=== PATIENT | female | born 2000 | race Caucasian/White ===

== ENCOUNTER 2024-03-28 12:54 | Emergency (ER) | payer OTHER, SELFPAY ==
[2024-03-28 13:14] VITALS: BP 124/89; PULSE 67; RESP 18; TEMP 36.4; O2SAT 100; BMI 24.5
--- NOTE | 2024-03-28 13:15 | ED_ITS ---
HPI - Skin/Abscess/Foreign Bdy General Chief complaint: Wound/Laceration Stated complaint: cut finger @ work Time Seen by Provider: 03/28/24 13:33 Source: patient Mode of arrival: ambulatory Limitations: no limitations History of Present Illness HPI narrative: Patient is a 23-year-old female who presents to the emergency department for evaluation of a laceration to L thumb from a knife while at work. Unaware of d ate of last tetanus vaccination. Related Data Allergies Allergy/AdvReac Type Severity Reaction Status Date / Time No Known Allergies Allergy Verified 03/28/24 13:15 Review of Systems Review of Systems: Yes all other systems are reviewed and are negative [facility], [facility] Past Medical History Attestation statement: The following information was validated with the patient. Source: old records reviewed Social History Social History Advance Directives: No Advance Directives Information Provided: No Do you have a plan to hurt others: No Plan Physical Exam Vital Signs: Vital Signs: Last Vital Signs Temp 97.5 F 03/28/24 13:14 Pulse 67 03/28/24 13:14 Resp 18 03/28/24 13:14 BP 124/89 03/28/24 13:14 Pulse Ox 100 03/28/24 13:14 O2 Del Method Room Air 03/28/24 13:14 BMI result Body Mass Index 24.5 Appearance: Alert.?Oriented to person, place and time. No acute distress.?Normal affect. Neck: Normal inspection.? Neck supple.?? CVS: Heart sounds normal. Normal heart rate and rhythm.? Pulses normal.?? Respiratory: No respiratory distress.? Lung sounds clear to auscultation bilaterally?? Skin: Skin warm and dry.? Normal skin color.? Superficial laceration to the ulnar aspect of the left distal, involvement along the side of the nail bed. No subungual hematoma. No active bleeding. Extremities: No lower extremity edema.? Full range of motion to digits Neuro: Moves all extremities spontaneously. Sensation intact bilaterally. Ambulates with normal steady gait. Course Course Course Narrative: This is an RME performed by Shaneka Arnett CNP: Additional HPI, ROS, PE not included below will be deferred to primary provider. Patient is a 23-year-old female who presents to the emergency department for evaluation of a laceration to L thumb from a knife while at work. Unaware of date of last tetanus vaccination. Medications Administered Discontinued Medications Generic Name Dose Route Start Last Admin Trade Name Freq PRN Reason Stop Dose Admin Diphtheria/Tetanus/Acell Pertussis 0.5 ml 03/28/24 13:22 03/28/24 13:30 Diphth,Pertus(Acell),Tet Adult 0.5 Ml Syringe IM 03/28/24 13:23 0.5 ml .ONCE ONE Administration Medical Decision Making Medical Decision Making MDM Narrative: Patient is a 23-year-old female who presents to the emergency department for evaluation of an accidental laceration to the left thumb as per HPI. Extremity is neurovascularly intact distally. No subungual hematoma. Laceration is not amenable to repair with suture as it is superficial. Cleansed extensively with normal saline and Betadine. Clean dry dressing was applied. Tetanus vaccine was updated. Stable for discharge home. Discussed return precautions including signs of infection. Differential Diagnosis Differential Diagnoses: The differential diagnosis associated with the presentation includes (See narrative above) Independent Historian Clinical information obtained from an independent historian. History obtained from or confirmed by: Friend (Present who confirms history) Prescription Management I considered prescription management with: Pain Medication (Acetaminophen/ibuprofen as needed) Discharge Plan Discharge Clinical Impression: Laceration of finger of left hand Qualifiers: Encounter type: initial encounter Finger: thumb Foreign body presence: without foreign body Patient Disposition: Home, Self-Care Instructions: Finger Laceration (ED) Referrals: Marilyn Medina NP [Primary Care Provider] - Print Language: East Timorese
[2024-03-28] MEDS: Diphth,Pertus(ACell),Tet Adult 0.5 ML SYRINGE IM (13:30)
[2024-03-28 13:38] VITALS: BP 124/89; PULSE 67; RESP 18; TEMP 36.4; O2SAT 100
== END 2024-03-28 13:38 | disposition home or self-care (01) ==
PROVIDERS: Emergency Provider Emergency Medicine; PCP Registered Nurse
DX: S61.012A Laceration without foreign body of left thumb without damage to nail, initial encounter (principal); W26.0XXA Contact with knife, initial encounter; Y93.9 Activity, unspecified; Y92.9 Unspecified place or not applicable; Y99.0 Civilian activity done for income or pay; Z23 Encounter for immunization
CPT/HCPCS: 90471; 90715; 99282; 99284

== ENCOUNTER 2025-06-21 11:35 | Inpatient (IN) | payer OTHER, SELFPAY ==
--- OUTSIDE RECORDS SUMMARY | 2023-05-22 17:02 | XMS_ITS | Encounter Summary ---
Author Organization [facility] Address [address] [place] [address] Phone Care Team Providers Care Banquet Set Up Person Name Role Phone Marilyn Medina CELL TECHNICIAN Primary Care Provider [phone] Encounter Details Date Type Department Care Team (Late st Contact Info) Description 05/22/2023 5:02 PM EDT Hospital Encounter [facility] [address] [place] [id number] Gela Yoder, CELL TECHNICIAN [address] [place] [address] [email or web address] Social History Tobacco Use Types Packs/Day Years Used Date Smoking Tobacco: Never Smokeless Tobacco: Never Alcohol Use Standard Drinks/Week Comments Yes 0 (1 standard drink = 0.6 oz pur e alcohol) Education Answer Date Recorded Are you interested in more education? Not on whit e 05/23/2023 Are you concerned about learning? Not on file 05/23/2023 No 05/23/2023 No 05/23/2023 Digital Access Answer Date Recorded No 05/23/2023 No 05/23/2023 Reliable internet access at home? Not on file 05/23/2023 Device with a working camera? Not on file Comments Unknown Sex and Gender Information Value Date Recorded Sex Assigned at Not on file Legal Sex Female 4:34 PM EDT Gender Identity Not on file Sexual Orientation Not on file documented as of this encounter Plan of Treatment Not on file documented as of this encounter Procedures Procedure Name Priority Date/Time Associated Diagnosis Comments XR FOOT 3 OR MORE VIEWS (RIGHT) Urgent/patient waiting 05/22/2023 5:10 PM EDT Right foot pain documented in this encounter Results * XR FOOT 3 OR MORE VIEWS (RIGHT) (05/22/2023 5:10 PM EDT) Anatomical Region Laterality Modality Foot Right Computed Radiogr aphy 05/22/2023 5:12 PM EDT Impressions 05/22/2023 5:21 PM EDT No fracture or dislocation. ATTESTATION: Ronda Motley as teaching physician, have reviewed the images for this case and if necessary edited the report originally created by Alma Paul. Narrative 05/22/2023 5:21 PM EDT XR FOOT 3 OR MORE VIEWS (RIGHT) COMPARISON: None FINDINGS: No fracture. Normal alignment. Normal joint spaces. No soft tissue swelling. Procedure Note Ronda Hernandez MD - 05/22/2023 XR FOOT 3 OR MORE VIEWS (RIGHT) COMPARISON: None FINDINGS: No fracture. Normal alignment. Normal joint spaces. No soft tissueswelling. IMPRESSION: No fracture or dislocation. ATTESTATION: Ronda Motley as teaching physician, have reviewed the imagesfor this case and if necessary edited the report originally created byAlma Paul. us Gela B Whitehill CELL TECHNICIAN IMG XR LOWER EXTREMITY Viviana l Result documented in this encounter Visit Diagnoses Not on filedocumented in this encounter Care Teams Banquet Set Up Person Relationship Specialty Start Date End Date Marilyn Medina NP PCP - General Nurse Practitioner 05/22/23 documented as of this encounter Additional Source Comments The information contained in this document represents components of the legal health record. It is not the complete legal health record.[facility]
[2025-06-21 11:43] VITALS: BP 125/75; PULSE 94; RESP 18; TEMP 36.2; O2SAT 98; BMI 23.4
--- NOTE | 2025-06-21 11:46 | ECG_ITS ---
Test Reason : overdose Blood Pressure : */* mmHG Vent. Rate : 95 BPM Atrial Rate : 95 BPM P-R Int : 144 ms QRS Dur : 86 ms QT Int : 346 ms P-R-T Axes : 77 109 0 degrees QTcB Int : 434 ms Normal sinus rhythm Rightward axis T wave abnormality, consider inferior ischemia Abnormal ECG No previous ECGs available Referred By: Nadir Larose Electronically Signed By: MICHELLE KNAPP MD
--- NOTE | 2025-06-21 11:50 | ED.GENADULT ---
HPI - General Adult General Chief complaint: Overdose Stated complaint: Took too much medication, vomiting Time Seen by Provider: 06/21/25 12:34 History of Present Illness ED Provider: Mary LUNA narrative: The patient is a generally healthy 25-year-old female. She is normally on oral contraceptive control but no other medications. Yesterday was her birthday. She was drinking alcohol last night. She says that she felt sad when she was drinking and took an overdose of at least 10 tablets of her boyfriend's losartan. These were 50 mg tablets. She says that at around 09:00 she developed vomiting with some mild epigastric discomfort. No fever, sweats, chills. The patient says that the decision to take the pills last night was very impulsive while she had had alcohol. Of note yesterday was her birthday. She really would not go into why she took the pills. Related Data Home Medications ?Medication ?Instructions ?Recorded ?Confirmed norethindrone 1 mg-ethinyl 1 tab PO DAILY 06/21/25 06/21/25 estradiol 20 mcg (24)-iron 75 mg (4) tablet (Kandace 24 Fe) Allergies Allergy/AdvReac Type Severity Reaction Status Date / Time No Known Allergies Allergy Verified 06/21/25 11:52 Review of Systems Review of Systems: Yes all other systems are reviewed and are negative [facility] Social History Social History Household Members: Other Household Members Other:: bf Housing: Condominium Do you presently have visiting nurse or other home services: No Alcohol intake: current Alcohol type: wine Patient Tobacco Use Status: Never used Tobacco Smoked in Last 30 Days: No Patient Interested in Nicotine Replacement: No Patient Given Instructions on How to Stop Smoking: No Second Hand Smoke Exposure: No Use of substances other than those prescribed or required for medical reasons: No Currently Displaying Signs/Symptoms of Drug Intoxication Withdrawal: No Have you been hit, kicked, punched, or otherwise hurt by someone within the past year? If so, by whom?: No Do you feel safe in your current relationship?: Yes Is there a partner from a previous relationship who is making you feel unsafe now?: No Are you made to feel afraid or neglected: No Spiritual Healthcare Practices: None Quaker Healthcare Practices: None Cultural Healthcare Practices: None Advance Directives: No Advance Directives Information Provided: Yes Do you have thoughts of harming others: None Do you have a plan to hurt others: No Plan Recently lost weight without trying: No How much weight loss: Not applicable Eating poorly because of decreased appetite: No Nutrition screen score: 0 Nutrition Risks: No Nutritional Risk Patient : No : No Poor oral hygiene: No Physical Exam ED Vital Signs: Vital Signs - 24 hr 06/22/25 14:41 Temperature 98.1 F Pulse Rate 86 Respiratory Rate 14 Blood Pressure 136/74 Pulse Oximetry 99 Oxygen Delivery Method Room Air BMI result Body Mass Index 23.4 Const General: cooperative, healthy appearing, comfortable and no acute distress Orientation/consciousness: patient oriented x3 HENMT Other: The face is symmetrical. ?Mucous membranes moist. Eyes Other: Pupils are round equal, conjunctivae are clear, extraocular movements intact Neck Neck: Yes normal visual inspection and Yes full ROM Resp Effort & Inspection: normal respiratory effort Auscultation: clear to auscultation bilaterally Cardio Rate: regular rate Rhythm: regular rhythm Heart sounds: S1 normal heart sound present and S2 normal heart sound present GI Other: Abdomen is soft and nontender Skin Other: The skin is dry and unremarkable Neuro General: patient oriented x3, tone normal, moves all extremities, no focal motor deficits and CN's II-XI intact bilaterally Extrem Other: There is no calf swelling or tenderness. No asymmetry. No peripheral edema. Psych Other: The patient is a well-groomed 25-year-old. She is pleasant and cooperative. There seems to be a discrepancy between her demeanor and the fact that she took a significant overdose last night. Course Course Course Narrative: RME: 25 yold female presents to the ED for intentional overdose of losartan 50 mg 10 pills. that occured 12 hours ago. patient states she was drinking for her birhtday and got depressed and tool the pills. Patient states previous SI attempt with overdose in the past. labs, EkG, and care team consult placed. Reevaluation(s) Reevaluation #1: Time: 06:52 Date: 06/22/25 Provider: Spring Storm, DO Patient in physician observation for psychiatric evaluation.? No acute events reported overnight. No current complaints. VS stable.? Patient needs re-eval for CARE team this AM for dispo. Will continue to monitor. Reevaluation #2: 06/22/25 1700 ANTHONY physician observation ended admitted inpatient Medications Administered Discontinued Medications Generic Name Dose Route Start Last Admin Trade Name Terri PRN Reason Stop Dose Admin Famotidine 20 mg 06/21/25 12:57 06/21/25 13:54 Famotidine/Pf 20 Mg/2 Ml Vial IVPUSH 06/21/25 12:58 20 mg ONCE ONE Administration Sodium Chloride 1,000 mls @ 999 mls/hr 06/21/25 13:00 06/21/25 15:04 Ns IV 06/21/25 14:00 Infused .Q1H1M KATHIE Infusion Influenza Virus Vaccine 0.5 ml 06/22/25 18:09 06/22/25 20:04 Flu Vacc [id number](6mo Up)/Pf 0.5 Ml Syringe IM 06/22/25 18:10 0.5 ml .ONCE ONE Administration Ondansetron HCl 4 mg 06/21/25 12:57 06/21/25 13:54 Ondansetron Hcl 4 Mg/2 Ml Vial IVPUSH 06/21/25 12:58 4 mg ONCE ONE Administration Medical Decision Making Medical Decision Making [facility] Narrative: The patient comes to the emergency room after apparently taking an overdose last night while intoxicated. She presents a proximally 12 hours after the overdose. She reports that she took possibly as many as 10 or more losartan tablets, 50 mg each. She looks entirely well. She seems to be very corey about the event and does not seem to exhibit any concern about having taken the overdose. I spoke to the poison Center. Apparently losartan as rarely a concerning overdose. They recommended an additional few hours of medical observation at which point the patient could be medically cleared and seen by crisis. After 3 additional hours of observation during which time the patient looks entirely well she was moved into the psychiatric area and seen by crisis. The care team assembly line machine operator felt that there was not sufficient information available to safely discharge the patient. Given the potential seriousness of last night's overdose the patient will be kept in the emergency department overnight for a possible inpatient hospitalization. I have signed a section 12. The patient will be placed in physician observation as of 1700 on 06/21/2025. Lab Data 06/23/25 08:34 06/21/25 12:03 Labs: Lab Results 06/21/25 Range/Units 12:03 WBC 15.5 H (4.8-10.8) X10*3/uL RBC 4.07 L (4.20-5.50) X10*6/uL Hgb 13.1 (12.0-16.0) g/dl Hct 35.9 L (37.0-47.0) % MCV 88.2 (80.0-98.0) fL MCH 32.2 (27.0-33.0) pg MCHC 36.5 H (31.0-35.0) g/dl RDW 12.5 (11.0-16.0) % Plt Count 375 (160-400) X10*3/uL MPV 8.9 L (9.4-12.3) fL Immature Gran % (Auto) 0.4 (0.0-0.4) % Neut % (Auto) 80.1 H (45-73) % Lymph % (Auto) 11.8 L (20-40) % Holt % (Auto) 6.4 (2-11) % Eos % (Auto) 0.8 (0-4) % Baso % (Auto) 0.5 (0-2) % Lymph # (Auto) 1.8 (1.2-4.9) X10*3/uL Holt # (Auto) 1.0 (0.1-1.2) X10*3/uL Eos # (Auto) 0.1 (0.0-0.4) X10*3/uL Baso # (Auto) 0.1 (0.0-0.2) X10*3/uL Abs Immat Gran (auto) 0.06 H (0.00-0.03) X10*3/uL Absolute Neuts (auto) 12.4 H (2.0-8.3) x10*3/uL Absolute Nucleated RBC 0.000 (0.0-0.012) X10*3/uL Nucleated RBC % (auto) 0.0 (0.0-0.2) /100WBC PT 11.4 (10.9-12.4) SEC INR 1.0 (0.9-1.1) APTT 23.3 L (26.7-34.1) SEC Sodium 141 (135-145) mmol/L Potassium 4.0 (3.3-5.1) mmol/L Chloride 108 (96-108) mmol/L Carbon Dioxide 21 L (22-29) mmol/L Anion Gap 16 (12-20) BUN 12 (9-16) mg/dL Creatinine 1.09 (0.5-1.4) mg/dL Estim Creat Clear Calc 62.9 Estimated GFR > 60 Random Glucose 105 (60-115) mg/dL Calcium 8.9 (8.4-10.2) mg/dL Magnesium 2.1 (1.6-2.6) mg/dL Total Bilirubin 0.5 (0.0-1.0) mg/dL AST 22 (5-31) U/L ALT 27 (0-31) U/L Alkaline Phosphatase 39 (39-117) U/L Total Protein 7.5 (6.5-8.0) g/dL Albumin 5.0 (3.5-5.0) g/dL Beta HCG, Quant < 2 mIU/mL Urine Color Yellow Urine Appearance Clear Urine pH >= 9.0 (5.0-9.0) Ur Specific [place] <= 1.005 (1.005-1.025) Urine Protein Negative (Neg-Trace) mg/dL Urine Glucose (UA) Negative (Negative) mg/dL Urine Ketones Negative (Negative) mg/dL Urine Blood Negative (Negative) Urine Nitrite Negative (Negative) Ur Leukocyte Esterase Trace H (Negative) Urine RBC 0-2 (0-2) /HPF Urine WBC 11-20 H (0-5) /HPF Ur Squamous Epith Cells 11-20 (0-2) /HPF Urine Bacteria None Seen (None Seen) Hyaline Casts 3-5 (0-2) /LPF Salicylates < 5.0 L (15-30) mg/dL Urine Opiates Screen Not Detected (Not Detect) Ur Buprenorphine Scrn Not Detected (Not Detect) ng/mL Ur Oxycodone Screen Not Detected (Not Detect) ng/mL Urine Methadone Screen Not Detected (Not Detect) ng/mL Urine Fentanyl Screen Not Detected (Not Detect) Acetaminophen < 3 (<30) mcg/mL Ur Barbiturates Screen Not Detected (Not Detect) Ur Phencyclidine Scrn Not Detected (Not Detect) Ur Amphetamines Screen Not Detected (Not Detect) U Benzodiazepines Scrn Not Detected (Not Detect) Urine Cocaine Screen Not Detected (Not Detect) U Marijuana (THC) Screen Not Detected (Not Detect) Ethyl Alcohol < 10 mg/dL Discharge Plan Discharge Clinical Impression: Drug overdose Patient Disposition: Admitted As Inpatient Interventions: Admission Worksheet (ED) Last Done: 06/22/25 17:00 Discharge Date/Time: 06/22/25 17:12
--- OUTSIDE RECORDS SUMMARY | 2025-06-21 12:05 | XMS_ITS | Clinical Summary ---
Author Organization [facility] Address [address] [place] [id number] Phone Care Team Providers Care Coil Inspector Name Role Phone Medina, Marilyn THAYER Primary Care Provider [phone] Allergies No known active allergies Medications , 1-20 mg-mcg per tablet Take 1 tablet by mouth every morning. 04/05/2023 Active Active Problems No known active problems Social History Tobacco Use Types Packs/Day Years Used Date Smoking Tobacco: Never Smokeless Tobacco: Never Tobacco Cessation:Counseling Given: Not Answered Alcohol Use Standard Drinks/Week Comments Yes 0 [...] on file Sexual Orientation Not on file Last Filed Vital Signs Vital Sign Reading Time Taken Comments Blood Pressure 123/80 05/22/2023 4:53 PM EDT Pulse 63 05/22/2023 4:53 PM EDT Temperature 36.3 C (97.3 F) 05/22/2023 4:53 PM EDT Respiratory Rate 18 05/22/2023 4:53 PM EDT Oxygen Saturation 99% 05/22/2023 4:53 PM EDT Inhaled Oxygen Concentration - - Weight - - Height - - Body Mass Index - - Plan of Treatment Health Maintenance Due Date Last Done Comments Adult Td,Tdap Booster 2001 DEPRESSION SCREENING 2013 SMOKING Hx and SMOKELESS TOBACCO SCREENING 2014 HPV VACCINES (1 - 3-dose series) 2016 CHLAMYDIA SCREENING 2017 HEPATITIS C SCREENING 2019 HIV ONE-TIME SCREENING (18-65 YEARS) 2019 PAP SMEAR 2022 INFLUENZA VACCINE (#1) 2025 2, 05/11/2021, 06/05/2020, Additional history exists COVID-19 VACCINE (2024- season) 2025 08/31/2021, 01/30/2021, 01/09/2021 HEPATITIS A VACCINES Aged Out 10/27/2020 No long er eligible based on patient's age to complete this topic HIB VACCINES Aged Out No longer eligi ble based on patient's age to complete this topic MENINGOCOCCAL VACCINES (ACWY) Aged Out No longer eligible based on patient's age to complete this topic MENINGOCOCCAL VACCINES (B) Aged Out N o longer eligible based on patient's age to complete this topic PNEUMOCOCCAL VACCINES (0-49 years) Aged Out No longer eligible based on patient's age to complete this topic Medical Devices Not on file Insurance CIGNA PPO CIGNA PPO CIGNA PPO CIGNA PPO CIGNA PPO CIGNA PPO Member Subscriber Plan / Payer (Ef fective 2008-Present) Name:Arina Liu Relation to Subscriber:Self Name:Arina Liu Payer ID:[id number] (NAIC) Type:PPO Address: [place] [id number] Care Teams Coil Inspector Relationship Specialty Start Date End Date Marilyn Medina NP PCP - General Nurse Practitioner 05/22/23 Additional Source Comments The information contained in this document represents components of the legal health record. It is not the complete legal health record.[facility]
[2025-06-21 12:11] LABS: MANUAL DIFF FLAG NO
[2025-06-21 12:12] LABS: Hematocrit 35.9 % (37.0-47.0); Hemoglobin 13.1 g/dl (12.0-16.0); Imm Gran Abs Auto 0.06 X10*3/uL (0.00-0.03); Imm Gran Pct Auto 0.4 % (0.0-0.4); Lymphocytes Absolute Auto 1.8 X10*3/uL (1.2-4.9); Mean Corpuscular HGB Conc 36.5 g/dl (31.0-35.0); Mean Corpuscular Hemoglobin 32.2 pg (27.0-33.0); Mean Corpuscular Volume 88.2 fL (80.0-98.0); NRBC Abs Auto 0.000 X10*3/uL (0.0-0.012); NRBC Pct Auto 0.0 /100WBC (0.0-0.2); Platelet Count 375 X10*3/uL (160-400); Red Blood Count 4.07 X10*6/uL (4.20-5.50); White Blood Count 15.5 X10*3/uL (4.8-10.8)
[2025-06-21 12:13] LABS: Appearance Urine Clear; Glucose Urine UA Negative (Negative); PH >= 9.0 (5.0-9.0); Specific Gravity - Urine <= 1.005 (1.005-1.025); UMIC TRIGGER UACC YES
[2025-06-21 12:14] VITALS: BP 103/70; PULSE 89; RESP 18; O2SAT 97
[2025-06-21 12:18] LABS: INTERNATIONAL NORM RATIO 1.0 (0.9-1.1); Prothrombin Time 11.4 SEC (10.9-12.4); UACC Culture Trigger YES
--- NOTE | 2025-06-21 12:19 | PC.NURSE ---
Addendum entered by John Naik RN 06/21/25 12:23: Pt's boyfriend is at bedside. He sts she got the medication from in the cabinet in the house. Original Note: 25 F presents to ED after overdose of losartan 50mg x 10+ tablets last night when drinking. Last drink of alcohol 10pm. A+Ox4, calm, cooperative. C/o 09/26 abdominal pain with n/v since this morning, no other complaints. Pt denies SI/HI at this time, sts she gave up drinking for a while because this happened last time. RR even and unlabored. denies CP or SOB.
[2025-06-21 12:21] LABS: Partial Thromboplastin Time 23.3 SEC (26.7-34.1)
[2025-06-21 12:22] LABS: Cannabinoid Screen Urine Not Detected (Not Detect)
--- NOTE | 2025-06-21 12:25 | PC.NURSE ---
Sitter at bedside, pt was changed over by security and belongings secured.
[2025-06-21 12:36] LABS: Acetaminophen LAB < 3 mcg/mL (<30); Alanine Aminotransferase 27 U/L (0-31); Albumin Level 5.0 g/dL (3.5-5.0); Alkaline Phosphatase 39 U/L (39-117); Anion Gap 16 (12-20); Aspartate Amino Transferase 22 U/L (5-31); Blood Urea Nitrogen 12 mg/dL (9-16); Calcium 8.9 mg/dL (8.4-10.2); Carbon Dioxide 21 mmol/L (22-29); Chloride 108 mmol/L (96-108); Creatinine Clr Calc Pharmacy 62.9; Estimated Glomerular Filt Rate > 60; Magnesium 2.1 mg/dL (1.6-2.6); Potassium 4.0 mmol/L (3.3-5.1); Salicylate < 5.0 mg/dL (15-30); Sodium 141 mmol/L (135-145); Total Protein 7.5 g/dL (6.5-8.0)
[2025-06-21 14:05] VITALS: BP 101/63; PULSE 76; RESP 14; O2SAT 98
--- NOTE | 2025-06-21 15:15 | PC.NURSE ---
Report called to pod nurse, IV removed, pt walked over to pod 6.
--- NOTE | 2025-06-21 15:32 | PC.NURSE ---
Assumed care of patient, report received from PATRICIA Gibson. Pt calm and cooperative, denying SI at this time. Pending CARE team doretha
[2025-06-21 20:44] VITALS: BP 131/79; PULSE 83; RESP 20; TEMP 36.6; O2SAT 99
[2025-06-22 06:21] VITALS: BP 123/69; PULSE 84; RESP 16; TEMP 36.4; O2SAT 98
--- NOTE | 2025-06-22 07:54 | PC.NURSE ---
Assumed care, report received. Pt wakes early, she is calm and cooperative. she eats breakfast and showers. she spends her morning reading in her room. she denies SI at this time.
--- NOTE | 2025-06-22 13:22 | PHA.MEDREC ---
Addendum entered by Lee Dee PharmD 06/22/25 13:31: reviewed Original Note: Pharmacy Consult ? Medication Reconciliation Reviewed med rec done by nursing. Spoke with pt and she confirmed she only takes her control and nothing else at this time.
[2025-06-22 14:41] VITALS: BP 136/74; PULSE 86; RESP 14; TEMP 36.7; O2SAT 99
[2025-06-22 17:00] VITALS: BP 150/76; PULSE 73; RESP 16; TEMP 2.8; TEMP 37.1; O2SAT 97
[2025-06-22 18:37] VITALS: BMI 23.4
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
[2025-06-22] MEDS: Flu Vacc TS2025-26(6mo up)/PF 0.5 ML SYRINGE IM (20:04)
[2025-06-22 20:09] VITALS: BP 121/68; PULSE 71; RESP 16; TEMP 36.1; O2SAT 96
--- NOTE | 2025-06-22 20:23 | P.HPPS_ITS ---
HPI Date of Service: 06/22/25 Chief Complaint: Losartan overdoes,alcohol abuse Sources of Information: patient interviewed, chart reviewed and crisis/core team assessment reviewed HPI Subjective Notes: [place] Warning and Conditional Voluntary Healthcare Proxy: No Guardianship: No Medical Problems Affecting Mental Status: No Narrative: Per Care team note: patient is a 25 y.o single, While, [place]serr[place] speaking female with no prior mental or medical conditions who was brought to [facility] ED by her boyfriend due to concern of intentional OD on more than 10 50mg Losastin tablets. Patient required poison control monitoring but Losastain is not typically fatal. Patient has no hx of mental health treatment. Patient inappropriately laughs throughout the assessment while providing guarded/vague about the reported intentional OD. Patient reports that she had 5-6 alcohol beverages over the course of the day including wine and martinis. patient was unable to clearly tell her thought process behind taking the pills 'I was not really thinking of anything. I was impulsive and took them . On M5: patient reports reasons for brought to the hospital are the other day I took some blood pressure pills . Patient clarifies that the pills are not her or her boyfriend but from a friend who left in the house. Report that Sunday was her birthday, she had some drinks with friends. Her Ex-boyfriend sent message to say happy birthday. Her current boyfriend was not happy about it. He got upset and patient then got upset because of him being upset. Patient then took OD. Her goal or thoughts at that moment was not intentionally to kill myself rather than an impulsive behaviors under influence of alcohol. She reports that she has been stopped drinking since February as she knows alcohol is not good for her. Report she gets emotion, not thinking clearly and forget things easily when she drinks. She knows alcohol can bring her trouble and has been working hard to not drink but it was her birthday. Report having 2 glasses of wine and martinis on that day. No current W/D symptoms. Denies other substance use. Legal issues. Denies. Trauma hx: Denies. Treatment hx: no prior mental health treatment but started working with OP therapist since April from weekly to biweekly. She is currently working learning and development administrator and just bought a condo with her boyfriend in November. Report she is happy with her life and her job. Has good support family system. Denies mental health or substance use in family. Denies being dx with any mental health herself. Denies SI/SIB/HI/AVH. Hx of one prior suicide attempts via OD about 10 years ago when she was a teenager which she was not admitted to psychiatric hospital. Denies medical conditions except for chronic constipation. Patient is A+O x4, friendly, pleasant, and cooperative. Mood is fine and better now as I am on the floor . Appear to anxious. Wearing hospital attire with kempt hair, fair ADLS. Denies depression but report sometime feeling anxious. Thought process and thought content WNL. NO not appear to be psychotic. Speech is normal rate and volume, bright affect. Poor judgment but fair insight. Patient does not present with depression but appear to be anxious. Alcohol could be a problem, become impulsive and impaired under influence of alcohol. Possible dx for this presentation would be alcohol induce mood disorder and chronic constipation. Past Psychiatric History: Denies psychiatric treatment hx. [facility]. No psychiatrist but has active OP therapist started in April- weekly No medication trials hx. Not interested in medication at this time. Medical Evaluation Reviewed: Yes Unremarkable. PMFSH Narrative: Denies medical or surgical hx but report chronic constipation. Family History: Denies family of mental health hx. Report aunt is alcoholic who is in and out of treatment programs Social History: Patient is a single but in relationship, no children. College level for education. 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 Substance History: Some alcohol issues. Recently stopped drinking since March. Patient reports patient does not do well when having alcohol. Sometimes drink once a week. Denies other substance use. Trauma History: Denies Diagnostics Vital Signs (24Hr): Vital Signs - 24 hr 06/21/25 20:44 06/22/25 06:21 06/22/25 14:41 Temperature 98 F 97.6 F 98.1 F Pulse Rate 83 84 86 Respiratory Rate 20 16 14 Blood Pressure 131/79 123/69 136/74 Pulse Oximetry 99 98 99 Oxygen Delivery Method Room Air Room Air Room Air 06/22/25 17:00 06/22/25 20:09 Temperature 37.1 F L 97 F Pulse Rate 73 71 Respiratory Rate 16 16 Blood Pressure 150/76 H 121/68 Pulse Oximetry 97 96 Oxygen Delivery Method Room Air Room Air BMI result Body Mass Index 23.4 Labs 06/21/25 12:03 06/21/25 12:03 Labs: Laboratory Results - last 48 hr 06/21/25 12:03 WBC 15.5 H RBC 4.07 L Hgb 13.1 Hct 35.9 L MCV 88.2 MCH 32.2 MCHC 36.5 H RDW 12.5 Plt Count 375 MPV 8.9 L Immature Gran % (Auto) 0.4 Neut % (Auto) 80.1 H Lymph % (Auto) 11.8 L [place] % (Auto) 6.4 Eos % (Auto) 0.8 Baso % (Auto) 0.5 Lymph # (Auto) 1.8 [place] # (Auto) 1.0 Eos # (Auto) 0.1 Baso # (Auto) 0.1 Abs Immat Gran (auto) 0.06 H Absolute Neuts (auto) 12.4 H Absolute Nucleated RBC 0.000 Nucleated RBC % (auto) 0.0 PT 11.4 INR 1.0 APTT 23.3 L Sodium 141 Potassium 4.0 Chloride 108 Carbon Dioxide 21 L Anion Gap 16 BUN 12 Creatinine 1.09 Estim Creat Clear Calc 62.9 Estimated GFR > 60 Random Glucose 105 Calcium 8.9 Magnesium 2.1 Total Bilirubin 0.5 AST 22 ALT 27 Alkaline Phosphatase 39 Total Protein 7.5 Albumin 5.0 Beta HCG, Quant < 2 Urine Color Yellow Urine Appearance Clear Urine pH >= 9.0 Ur Specific [place] <= 1.005 Urine Protein Negative Urine Glucose (UA) Negative Urine Ketones Negative Urine Blood Negative Urine Nitrite Negative Ur Leukocyte Esterase Trace H Urine RBC 0-2 Urine WBC 11-20 H Ur Squamous Epith Cells 11-20 Urine Bacteria None Seen Hyaline Casts 3-5 Salicylates < 5.0 L Urine Opiates Screen Not Detected Ur Buprenorphine Scrn Not Detected Ur Oxycodone Screen Not Detected Urine Methadone Screen Not Detected Urine Fentanyl Screen Not Detected Acetaminophen < 3 Ur Barbiturates Screen Not Detected Ur Phencyclidine Scrn Not Detected Ur Amphetamines Screen Not Detected U Benzodiazepines Scrn Not Detected Urine Cocaine Screen Not Detected U Marijuana (THC) Screen Not Detected Ethyl Alcohol < 10 Meds/Allergies Meds Home Medications ?Medication ?Instructions ?Recorded ?Confirmed ?Type norethindrone 1 mg-ethinyl 1 tab PO DAILY 06/21/2502/08 History estradiol 20 mcg (24)-iron 75 mg (4) tablet (Kandace 24 Fe) Allergies Allergies Allergy/AdvReac Type Severity Reaction Status Date / Time No Known Allergies Allergy Verified 06/21/25 11:52 Mental Status Exam Mental Status Exam Narrative: Patient is alert and oriented; behavior is cooperative, friendly with mild to moderate anxiety; patient is not in distress; dressed in hospital attire with kempt hair and adequate hygiene; mood is described as find and better now and affect congruent; eye contact appropriate; Speech is normal rate, volume and prosody and not pressured; no psychomotor agitation/retardation present; thought process is organized and goal directed; Thought content is WNL, pertinent to relevant topics and without any delusional content, paranoid ideation or grandiosity; denies any SI/SIB/HI. Denies AH and there is no evidence of perceptual disturbance. Patient's insight intact and judgment poor Assessment & Plan Assessment & Plan (1) Drug overdose: Status: Acute Code(s): T50.901A - Poisoning by unspecified drugs, medicaments and biological substances, accidental (unintentional), initial encounter (2) Alcohol-induced mood disorder: Status: Acute Code(s): F10.94 - Alcohol use, unspecified with alcohol-induced mood disorder (3) Constipation: Status: Acute Code(s): K59.00 - Constipation, unspecified Plan HPI: Patient is a 25 y.o single, While, [place] speaking female with no prior mental or medical conditions who was brought to [facility] ED by her boyfriend due to concern of intentional OD on more than 10 50mg Losastin tablets. Patient required poison control monitoring but Losastain is not typically fatal. Patient has no hx of mental health treatment. Patient inappropriately laughs throughout the assessment while providing guarded/vague about the reported intentional OD. Patient reports that she had 5-6 alcohol beverages over the course of the day including wine and martinis. patient was unable to clearly tell her thought process behind taking the pills 'I was not really thinking of anything. I was impulsive and took them . Patient does not present with depression but appear to be anxious. Alcohol could be a problem, become impulsive and impaired under influence of alcohol. Possible dx for this presentation would be alcohol induce mood disorder and chronic constipation. Patient is not interesting medication at this time. Would like to work with OP therapist. Formulation/clinical reasoning: OD'd on more than 10 Losartin- impulsive under influence of alcohol. No prior treatment hx. this is her second attempt via OD. Not current on any psychotropic medications. No OP psychiatrist but has been working with OP therapist since April. Given above information, patient would be benefit with restrictive environment for her own safety, leanring coping skills, and refer patient back to OP therapist for aftercare. Hospital course: 06/22/25: Reviewed with patient the list of PRN protocol medication which is available. Patient is not interested in medication. She is not interested in laxative even though report chronic constipation. Last BM was last Sunday. Plan Patient on 15 minute checks for safety. Admitted to . CV. Work with treatment team to do collateral. Currently has OP therapist who patient sees/calls weekly or biweekly. Dx if necessary. Patient educated on: diagnosis, medication risk/benefits, substance abuse and therapeutic strategies Informed Consent: understands Reason for continued inpatient stay Substantial Risk for: med/psych decompensation Statement Statement: I have reviewed the history and physical and performed a pertinent examination on my patient. No changes have occurred unless specified. If the History and Physical was not performed prior to admission, the Hospitalist's service will be consulted for completing the admission physical. Time Spent With Patient Time: Total time managing care of this patient today ____ minutes.
[2025-06-23 08:00] VITALS: BP 119/67; PULSE 64; RESP 18; TEMP 37.1; O2SAT 96
[2025-06-23 09:06] LABS: MANUAL DIFF FLAG NO
[2025-06-23 09:07] LABS: Hematocrit 37.3 % (37.0-47.0); Hemoglobin 13.0 g/dl (12.0-16.0); Imm Gran Abs Auto 0.01 X10*3/uL (0.00-0.03); Imm Gran Pct Auto 0.1 % (0.0-0.4); Lymphocytes Absolute Auto 2.2 X10*3/uL (1.2-4.9); Mean Corpuscular HGB Conc 34.9 g/dl (31.0-35.0); Mean Corpuscular Hemoglobin 32.1 pg (27.0-33.0); Mean Corpuscular Volume 92.1 fL (80.0-98.0); NRBC Abs Auto 0.000 X10*3/uL (0.0-0.012); NRBC Pct Auto 0.0 /100WBC (0.0-0.2); Platelet Count 368 X10*3/uL (160-400); Red Blood Count 4.05 X10*6/uL (4.20-5.50); White Blood Count 6.8 X10*3/uL (4.8-10.8)
[2025-06-23 09:19] LABS: Hemoglobin A1C 100.3547 umol/L; Total Hemoglobin (HGBA1C) 3264.3365 umol/L
[2025-06-23 09:38] LABS: Cholesterol 224 mg/dL (<200); HDL Cholesterol 63 mg/dL (>40); Magnesium 2.0 mg/dL (1.6-2.6); Triglycerides 167 mg/dL (<150)
[2025-06-23 09:54] LABS: Free T4 (Free Thyroxine) 0.93 ng/dL (0.71-1.85); Thyroid Stimulating Hormone 2.05 uIU/mL (0.32-4.0)
[2025-06-23 09:59] LABS: Folate 11.5 ng/mL (> or = 4.0); Vitamin B12 533 pg/mL (200-900)
--- NOTE | 2025-06-23 14:56 | P.CONHOSP_ITS ---
History of Present Illness Data of Consult Service Date: 06/23/25 Primary Care Provider: None Physician HPI Reason for consult: Medical consult 25-year-old female with no significant past medical history presents to the ED with an overdose. She reports that she was drinking yesterday, felt depressed and took 10 tablets of her boyfriend's losartan. On exam she had some leukocytosis, no anemia, metabolic panel within normal limits. Urine without evidence of infection no . U tox was negative, and no alcohol on admission. On exam she denies any medical concerns. Review of Systems 2 Review of Systems: Denies any shortness of breath, chest pain, headaches, dysuria, abdominal pain or discomfort, nausea, vomiting or diarrhea. Denies fever or chill PMFSH Social History Household Members: Other Household Members Other:: bf [facility] Do you presently have visiting nurse or other home services: No Alcohol intake: current Alcohol type: wine Patient Tobacco Use Status: Never used Tobacco Smoked in Last 30 Days: No Patient Interested in Nicotine Replacement: No Patient Given Instructions on How to Stop Smoking: No Second Hand Smoke Exposure: No Use of substances other than those prescribed or required for medical reasons: No Currently Displaying Signs/Symptoms of Drug Intoxication Withdrawal: No Have you been hit, kicked, punched, or otherwise hurt by someone within the past year? If so, by whom?: No Do you feel safe in your current relationship?: Yes Is there a partner from a previous relationship who is making you feel unsafe now?: No Are you made to feel afraid or neglected: No Spiritual Healthcare Practices: None Quaker Healthcare Practices: None Cultural Healthcare Practices: None Advance Directives: No Advance Directives Information Provided: Yes Do you have thoughts of harming others: None Do you have a plan to hurt others: No Plan Recently lost weight without trying: No How much weight loss: Not applicable Eating poorly because of decreased appetite: No Nutrition screen score: 0 Nutrition Risks: No Nutritional Risk Patient : No : No Poor oral hygiene: No Meds Allergies Allergy/AdvReac Type Severity Reaction Status Date / Time No Known Allergies Allergy Verified 06/21/25 11:52 Active Medications: Current Medications Acetaminophen (Acetaminophen 325 Mg Tablet) 650 mg PO Q6H PRN PRN Reason: Headache/Pain, Scale 1-10 Al Hydroxide/Mg Hydroxide (Magnesium Hydrox/Alum Hydrox 30 Ml Oral.Susp) 30 ml PO Q6H PRN PRN Reason: Heartburn/Nausea Hydroxyzine HCl (Hydroxyzine Hcl 25 Mg Tablet) 25 mg PO Q6H PRN PRN Reason: mild anxiety Magnesium Hydroxide (Milk Of Magnesia 30 Ml Oral.Susp) 30 ml PO DAILY PRN PRN Reason: Constipation Nicotine Polacrilex (Nicotine Polacrilex 2 Mg Gum) 4 mg BUCCAL Q2H PRN PRN Reason: Nicotine Cravings Non-Formulary Medication (Norethindrone-E.Estradiol-Iron [Kandace 24 Fe]) 1 tab PO DAILY KATHIE Trazodone HCl (Trazodone Hcl 50 Mg Tablet) 50 mg PO BEDTIME MRX1 PRN PRN Reason: Insomnia Home Medications ?Medication ?Instructions ?Recorded ?Confirmed ?Last Taken ?Type norethindrone 1 mg-ethinyl 1 tab PO DAILY 06/21/2502/0806/20/25 History estradiol 20 mcg (24)-iron 75 mg (4) tablet (Kandace 24 Fe) Physical Exam 2 Vital Signs and Narrative: Vital Signs: Last Vital Signs Temp 98.7 F 06/23/25 08:00 Pulse 64 06/23/25 08:00 Resp 18 06/23/25 08:00 BP 119/67 06/23/25 08:00 Pulse Ox 96 06/23/25 08:00 O2 Del Method Room Air 06/23/25 08:00 BMI result Body Mass Index 23.4 CONST: Alert and oriented, in NAD. Well nourished HEENT: Normocephalic, atraumatic, MMM, Eyes clear, Neck supple RESP: Lungs clear, RRR even and regular HEART:,RRR, S1, S2. No edema GI:Abdomen Soft NT, ND. + BS times four :Deferred SKIN: Warm dry and intact, no visible lesions or rashes NEURO:CN II-XII Intact bilaterally, Sensation intact. Speech clear PSYCH: Normal affect Results Labs 06/23/25 08:34 06/21/25 12:03 Labs: Laboratory Results - last 24 hr 06/23/25 08:34 MCV 92.1 MCH 32.1 MCHC 34.9 RDW 12.6 Plt Count 368 MPV 9.3 L Immature Gran % (Auto) 0.1 Neut % (Auto) 58.4 Lymph % (Auto) 31.7 [place] % (Auto) 5.7 Eos % (Auto) 3.5 Baso % (Auto) 0.6 Lymph # (Auto) 2.2 [place] # (Auto) 0.4 Eos # (Auto) 0.2 Baso # (Auto) 0.0 Abs Immat Gran (auto) 0.01 Absolute Neuts (auto) 4.0 Absolute Nucleated RBC 0.000 Nucleated RBC % (auto) 0.0 Estimat Average Glucose 97 Hemoglobin A1c % 5.0 Magnesium 2.0 Triglycerides 167 H Cholesterol 224 H LDL Cholesterol, Calc 128 H HDL Cholesterol 63 Vitamin B12 533 Folate 11.5 TSH 2.05 Free T4 0.93 Assessment and Plan (1) Alcohol-induced mood disorder: Status: Acute Plan 25-year-old healthy female who presented to the ED after an overdose of losartan. She is admitted to inpatient psych for further care Intentional overdose/ETOH misuse, mood disorder as a result Treatment per psychiatric team Thank you for allowing me to participate in the care of this patient. Will follow as needed, please notify medical provider with any changes in condition or concerns.
[2025-06-23 20:35] VITALS: BP 106/68; PULSE 76; RESP 16; TEMP 36.4; O2SAT 98
--- NOTE | 2025-06-23 22:26 | P.PNPSI_ITS ---
Subjective Subjective Date of Service: 06/23/25 Reason For Visit: Losartan overdoes,alcohol abuse Interim History: Met with patient; discussed with team Patient shared events that led up to overdose. Patient said she does not remember much of her thinking at that time due to drinking; patient denies that she was suicidal though equates it more to getting attention due to her boyfriend being emotionally reserved and upset with her; a reminded her of a time when she was 14 her mother was disappointed in her and patient took an overdose of allergy pills. Patient shared about challenging relationship with her mother and how she has been discussing this and working through it and therapy. Patient denies depression or anxiety overall and had this point does not want medication. Mental Status Exam Mental Status Exam Narrative: Pt is alert and oriented; behavior is cooperative, friendly and calm; patient is not in distress; dressed in casual attire with adequate hygiene and grooming; mood is described as good and affect congruent; eye contact appropriate; Speech is normal rate, volume and prosody and not pressured; no psychomotor agitation/retardation present; thought process is organized and goal directed; Thought content is on tx; otherwise pertinent to relevant topics and without any delusional content, paranoid ideations or grandiosity; denies any SI/HI. Denies AVH and there is no evidence of perceptual disturbance. Patients insight and judgment appear intact. Diagnostics Vital Signs (24Hr): Vital Signs - 24 hr 06/23/25 08:00 06/23/25 20:35 Temperature 98.7 F 97.6 F Pulse Rate 64 76 Respiratory Rate 18 16 Blood Pressure 119/67 106/68 Pulse Oximetry 96 98 Oxygen Delivery Method Room Air Room Air BMI result Body Mass Index 23.4 Labs 06/23/25 08:34 06/21/25 12:03 Labs: Laboratory Results - last 48 hr 06/23/25 08:34 WBC 6.8 RBC 4.05 L Hgb 13.0 Hct 37.3 MCV 92.1 MCH 32.1 MCHC 34.9 RDW 12.6 Plt Count 368 MPV 9.3 L Immature Gran % (Auto) 0.1 Neut % (Auto) 58.4 Lymph % (Auto) 31.7 [place] % (Auto) 5.7 Eos % (Auto) 3.5 Baso % (Auto) 0.6 Lymph # (Auto) 2.2 [place] # (Auto) 0.4 Eos # (Auto) 0.2 Baso # (Auto) 0.0 Abs Immat Gran (auto) 0.01 Absolute Neuts (auto) 4.0 Absolute Nucleated RBC 0.000 Nucleated RBC % (auto) 0.0 Estimat Average Glucose 97 Hemoglobin A1c % 5.0 Magnesium 2.0 Triglycerides 167 H Cholesterol 224 H LDL Cholesterol, Calc 128 H HDL Cholesterol 63 Vitamin B12 533 Folate 11.5 TSH 2.05 Free T4 0.93 Medications Medications Current Medications Acetaminophen (Acetaminophen 325 Mg Tablet) 650 mg PO Q6H PRN PRN Reason: Headache/Pain, Scale 1-10 Al Hydroxide/Mg Hydroxide (Magnesium Hydrox/Alum Hydrox 30 Ml Oral.Susp) 30 ml PO Q6H PRN PRN Reason: Heartburn/Nausea Hydroxyzine HCl (Hydroxyzine Hcl 25 Mg Tablet) 25 mg PO Q6H PRN PRN Reason: mild anxiety Magnesium Hydroxide (Milk Of Magnesia 30 Ml Oral.Susp) 30 ml PO DAILY PRN PRN Reason: Constipation Nicotine Polacrilex (Nicotine Polacrilex 2 Mg Gum) 4 mg BUCCAL Q2H PRN PRN Reason: Nicotine Cravings Non-Formulary Medication (Norethindrone-E.Estradiol-Iron [Kandace 24 Fe]) 1 tab PO DAILY KATHIE Trazodone HCl (Trazodone Hcl 50 Mg Tablet) 50 mg PO BEDTIME MRX1 PRN PRN Reason: Insomnia Allergies Allergies Allergy/AdvReac Type Severity Reaction Status Date / Time No Known Allergies Allergy Verified 06/21/25 11:52 Assessment & Plan Assessment & Plan (1) Adjustment disorder with mixed disturbance of emotions and conduct: Status: Acute Code(s): F43.25 - Adjustment disorder with mixed disturbance of emotions and conduct Plan 25-year-old healthy female who presented to the ED after an overdose of losartan. She is admitted to inpatient psych for further care Intentional overdose/ETOH misuse, mood disorder as a result Treatment per psychiatric team 06/23 Patient shared events that led up to overdose. Patient said she does not remember much of her thinking at that time due to drinking; patient denies that she was suicidal though equates it more to getting attention due to her boyfriend being emotionally reserved and upset with her; a reminded her of a time when she was 14 her mother was disappointed in her and patient took an overdose of allergy pills. Patient shared about challenging relationship with her mother and how she has been discussing this and working through it and therapy. Patient denies depression or anxiety overall and had this point does not want medication. Patient educated on: diagnosis and therapeutic strategies Informed Consent: understands Reason for continued inpatient stay Substantial Risk for: stable for discharge and rapid decompensation Time Spent With Patient Time: Total time managing care of this patient today ____ minutes.
[2025-06-24 07:58] VITALS: BP 106/67; PULSE 79; TEMP 36.9; O2SAT 96
--- NOTE | 2025-06-24 09:56 | P.PNPSI_ITS ---
Subjective Subjective Date of Service: 06/24/25 Reason For Visit: Losartan overdoes,alcohol abuse Interim History: Met with patient; discussed with team Patient reports that her mood is good and she remains without any SI. Patient shares that experience on the unit has been helpful and helped her reflect; she continues to make connections with her past history and this recent event. Patient does not feel she needs to be on medications values therapy feeling that this will be enough. However she wanted to discuss medication options should she ever change her mind and customs entry writer provided education. Patient feels ready to go home, safe and back to her regular self. Mental Status Exam Mental Status Exam Narrative: Pt is alert and oriented; behavior is cooperative, friendly and calm; patient is not in distress; dressed in casual attire with adequate hygiene and grooming; mood is described as good and affect congruent; eye contact appropriate; Speech is normal rate, volume and prosody and not pressured; no psychomotor agitation/retardation present; thought process is organized and goal directed; Thought content is on tx; otherwise pertinent to relevant topics and without any delusional content, paranoid ideations or grandiosity; denies any SI/HI. Denies AVH and there is no evidence of perceptual disturbance. Patients insight and judgment are intact. Diagnostics Vital Signs (24Hr): Vital Signs - 24 hr 06/23/25 20:35 06/24/25 07:58 Temperature 97.6 F 98.4 F Pulse Rate 76 79 Respiratory Rate 16 Blood Pressure 106/68 106/67 Pulse Oximetry 98 96 Oxygen Delivery Method Room Air Room Air BMI result Body Mass Index 23.4 Labs 06/23/25 08:34 06/21/25 12:03 Labs: Laboratory Results - last 48 hr 06/23/25 08:34 WBC 6.8 RBC 4.05 L Hgb 13.0 Hct 37.3 MCV 92.1 MCH 32.1 MCHC 34.9 RDW 12.6 Plt Count 368 MPV 9.3 L Immature Gran % (Auto) 0.1 Neut % (Auto) 58.4 Lymph % (Auto) 31.7 [place] % (Auto) 5.7 Eos % (Auto) 3.5 Baso % (Auto) 0.6 Lymph # (Auto) 2.2 [place] # (Auto) 0.4 Eos # (Auto) 0.2 Baso # (Auto) 0.0 Abs Immat Gran (auto) 0.01 Absolute Neuts (auto) 4.0 Absolute Nucleated RBC 0.000 Nucleated RBC % (auto) 0.0 Estimat Average Glucose 97 Hemoglobin A1c % 5.0 Magnesium 2.0 Triglycerides 167 H Cholesterol 224 H LDL Cholesterol, Calc 128 H HDL Cholesterol 63 Vitamin B12 533 Folate 11.5 TSH 2.05 Free T4 0.93 Medications Medications Current Medications Acetaminophen (Acetaminophen 325 Mg Tablet) 650 mg PO Q6H PRN PRN Reason: Headache/Pain, Scale 1-10 Al Hydroxide/Mg Hydroxide (Magnesium Hydrox/Alum Hydrox 30 Ml Oral.Susp) 30 ml PO Q6H PRN PRN Reason: Heartburn/Nausea Hydroxyzine HCl (Hydroxyzine Hcl 25 Mg Tablet) 25 mg PO Q6H PRN PRN Reason: mild anxiety Magnesium Hydroxide (Milk Of Magnesia 30 Ml Oral.Susp) 30 ml PO DAILY PRN PRN Reason: Constipation Nicotine Polacrilex (Nicotine Polacrilex 2 Mg Gum) 4 mg BUCCAL Q2H PRN PRN Reason: Nicotine Cravings Non-Formulary Medication (Norethindrone-E.Estradiol-Iron [Kandace 24 Fe]) 1 tab PO DAILY KATHIE Trazodone HCl (Trazodone Hcl 50 Mg Tablet) 50 mg PO BEDTIME MRX1 PRN PRN Reason: Insomnia Allergies Allergies Allergy/AdvReac Type Severity Reaction Status Date / Time No Known Allergies Allergy Verified 06/21/25 11:52 Assessment & Plan Assessment & Plan (1) Adjustment disorder with mixed disturbance of emotions and conduct: Status: Acute Code(s): F43.25 - Adjustment disorder with mixed disturbance of emotions and conduct Plan 25-year-old healthy female who presented to the ED after an overdose of losartan. She is admitted to inpatient psych for further care Intentional overdose/ETOH misuse, mood disorder as a result Treatment per psychiatric team 06/23 Patient shared events that led up to overdose. Patient said she does not remember much of her thinking at that time due to drinking; patient denies that she was suicidal though equates it more to getting attention due to her boyfriend being emotionally reserved and upset with her; a reminded her of a time when she was 14 her mother was disappointed in her and patient took an overdose of allergy pills. Patient shared about challenging relationship with her mother and how she has been discussing this and working through it and therapy. Patient denies depression or anxiety overall and had this point does not want medication. 06/24 Patient reports that her mood is good and she remains without any SI. Patient shares that experience on the unit has been helpful and helped her reflect; she continues to make connections with her past history and this recent event. Patient does not feel she needs to be on medications values therapy feeling that this will be enough. However she wanted to discuss medication options should she ever change her mind and customs entry writer provided education. Patient feels ready to go home, safe and back to her regular self. Patient's 3 day notice is coming due. She has remained in good behavioral and impulse control throughout her time in the unit, appropriate with peers and staff and engaged in treatment. Patient has demonstrated a willingness inability to self reflect and judgment and insight are intact. She is returning to her supportive boyfriend and has outpatient therapist already and place. She is future oriented and looking forward to returning to her jobs. Patient is not in imminent risk of harm to self or others and she is appropriate to return to the community for treatment; her request for discharge honored. Patient educated on: diagnosis, medication risk/benefits and therapeutic strategies Informed Consent: understands Reason for continued inpatient stay Substantial Risk for: stable for discharge Time Spent With Patient Time: Total time managing care of this patient today ____ minutes.
--- NOTE | 2025-06-24 14:37 | PM.PSYDC ---
DS: Providers Provider Date of Service: 06/25/25 Date of admission: 06/22/25 16:01 Date of discharge: 06/25/25 Primary care physician: None Physician DS: Diagnosis Discharge Diagnosis (1) Adjustment disorder with mixed disturbance of emotions and conduct: Status: Acute DS: Medications Discharge Medications Home Medications: Home Medications ?Medication ?Instructions ?Recorded ?Confirmed norethindrone 1 mg-ethinyl 1 tab PO DAILY 06/21/25 06/21/25 estradiol 20 mcg (24)-iron 75 mg (4) tablet (Kandace 24 Fe) Mental Status Exam Mental Status Exam Narrative: Pt is alert and oriented; behavior is cooperative, friendly and calm; patient is not in distress; dressed in casual attire with adequate hygiene and grooming; mood is described as good and affect congruent; eye contact appropriate; Speech is normal rate, volume and prosody and not pressured; no psychomotor agitation/retardation present; thought process is organized and goal directed; Thought content is on tx; otherwise pertinent to relevant topics and without any delusional content, paranoid ideations or grandiosity; denies any SI/HI. Denies AVH and there is no evidence of perceptual disturbance. Patients insight and judgment are intact. Data Data Completed and Pending Completed studies during hospitalization [Text1]: 06/21/25 06/23/25 12:03 08:34 WBC 15.5 H 6.8 RBC 4.07 L 4.05 L Hgb 13.1 13.0 Hct 35.9 L 37.3 MCV 88.2 92.1 MCH 32.2 32.1 MCHC 36.5 H 34.9 RDW 12.5 12.6 Plt Count 375 368 MPV 8.9 L 9.3 L Immature Gran % (Auto) 0.4 0.1 Neut % (Auto) 80.1 H 58.4 Lymph % (Auto) 11.8 L 31.7 [place] % (Auto) 6.4 5.7 Eos % (Auto) 0.8 3.5 Baso % (Auto) 0.5 0.6 Lymph # (Auto) 1.8 2.2 [place] # (Auto) 1.0 0.4 Eos # (Auto) 0.1 0.2 Baso # (Auto) 0.1 0.0 Abs Immat Gran (auto) 0.06 H 0.01 Absolute Neuts (auto) 12.4 H 4.0 Absolute Nucleated RBC 0.000 0.000 Nucleated RBC % (auto) 0.0 0.0 PT 11.4 INR 1.0 APTT 23.3 L Sodium 141 Potassium 4.0 Chloride 108 Carbon Dioxide 21 L Anion Gap 16 BUN 12 Creatinine 1.09 Estim Creat Clear Calc 62.9 Estimated GFR > 60 Random Glucose 105 Estimat Average Glucose 97 Hemoglobin A1c % 5.0 Calcium 8.9 Magnesium 2.1 2.0 Total Bilirubin 0.5 AST 22 ALT 27 Alkaline Phosphatase 39 Total Protein 7.5 Albumin 5.0 Triglycerides 167 H Cholesterol 224 H LDL Cholesterol, Calc 128 H HDL Cholesterol 63 Vitamin B12 533 Folate 11.5 TSH 2.05 Free T4 0.93 Beta HCG, Quant < 2 Urine Color Yellow Urine Appearance Clear Urine pH >= 9.0 Ur Specific [place] <= 1.005 Urine Protein Negative Urine Glucose (UA) Negative Urine Ketones Negative Urine Blood Negative Urine Nitrite Negative Ur Leukocyte Esterase Trace H Urine RBC 0-2 Urine WBC 11-20 H Ur Squamous Epith Cells 11-20 Urine Bacteria None Seen Hyaline Casts 3-5 Salicylates < 5.0 L Urine Opiates Screen Not Detected Ur Buprenorphine Scrn Not Detected Ur Oxycodone Screen Not Detected Urine Methadone Screen Not Detected Urine Fentanyl Screen Not Detected Acetaminophen < 3 Ur Barbiturates Screen Not Detected Ur Phencyclidine Scrn Not Detected Ur Amphetamines Screen Not Detected U Benzodiazepines Scrn Not Detected Urine Cocaine Screen Not Detected U Marijuana (THC) Screen Not Detected Ethyl Alcohol < 10 06/21/25 Unknown Urine clean catch - Clean Catch Midstream Urine Culture - Final No growth. DS: Summary Hospital Course Hospital Course: HPI: patient is a 25 y.o single, While, Wallisian speaking female with no prior mental or medical conditions who was [place] [facility] [place] boyfriend due to concern of intentional OD on more than 10 50mg Losastin tablets. Patient required poison control monitoring but Losastain is not typically fatal. Patient has no hx of mental health treatment. Patient inappropriately laughs throughout the assessment while providing guarded/vague about the reported intentional OD. Patient reports that she had 5-6 alcohol beverages over the course of the day including wine and martinis. patient was unable to clearly tell her thought process behind taking the pills 'I was not really thinking of anything. I was impulsive and took them . On M5: patient reports reasons for brought to the hospital are the other day I took some blood pressure pills . Patient clarifies that the pills are not her or her boyfriend but from a friend who left in the house. Report that Sunday was her birthday, she had some drinks with friends. Her Ex-boyfriend sent message to say happy birthday. Her current boyfriend was not happy about it. He got upset and patient then got upset because of him being upset. Patient then took OD. Her goal or thoughts at that moment was not intentionally to kill myself rather than an impulsive behaviors under influence of alcohol. She reports that she has been stopped drinking since February as she knows alcohol is not good for her. Report she gets emotion, not thinking clearly and forget things easily when she drinks. She knows alcohol can bring her trouble and has been working hard to not drink but it was her birthday. Report having 2 glasses of wine and martinis on that day. No current W/D symptoms. Denies other substance use. Legal issues. Denies. Trauma hx: Denies. Treatment hx: no prior mental health treatment but started working with OP therapist since April from weekly to biweekly. She is currently working multimedia production assistant and just bought a condo with her boyfriend in November. Report she is happy with her life and her job. Has good support family system. Denies mental health or substance use in family. Denies being dx with any mental health herself. Denies SI/SIB/HI/AVH. Hx of one prior suicide attempts via OD about 10 years ago when she was a teenager which she was not admitted to psychiatric hospital. Denies medical conditions except for chronic constipation. Hospital course: 06/23 Patient shared events that led up to overdose. Patient said she does not remember much of her thinking at that time due to drinking; patient denies that she was suicidal though equates it more to getting attention due to her boyfriend being emotionally reserved and upset with her; a reminded her of a time when she was 14 her mother was disappointed in her and patient took an overdose of allergy pills. Patient shared about challenging relationship with her mother and how she has been discussing this and working through it in therapy. Patient denies depression or anxiety overall and had this point does not want medication. 06/24 Patient reports that her mood is good and she remains without any SI. Patient shares that experience on the unit has been helpful and helped her reflect; she continues to make connections with her past history and this recent event. Patient does not feel she needs to be on medications values therapy feeling that this will be enough. However she wanted to discuss medication options should she ever change her mind and freelance writer provided education. Patient feels ready to go home, safe and back to her regular self. Patient's 3 day notice is coming due. She has remained in good behavioral and impulse control throughout her time in the unit, appropriate with peers and staff and engaged in treatment. Patient has demonstrated a willingness inability to self reflect and judgment and insight are intact. She is returning to her supportive boyfriend and has outpatient therapist already and place. She is future oriented and looking forward to returning to her jobs. Patient is not in imminent risk of harm to self or others and she is appropriate to return to the community for treatment; her request for discharge honored. Status at Discharge Functional status at discharge: independent ambulation Overall status at discharge: patient is back to baseline Time Spent with Patient Time attestation: Total time managing care of this patient today ____ minutes. Time spent: Less than 30 minutes Discharge Plan Discharge Anticipated Discharge Date/Time: 06/25/25 11:30 Patient Disposition: Home, Self-Care Discharge Diagnosis: Adjustment disorder with disturbance of mood/conduct, in full remission Referrals: Judy Lira (therapist) [Other] - 06/25/25 6:00 pm Referral Note: Hospital discharge appointment with therapy provider Appointment is by tele-health Physician,None [Primary Care Provider, Medical] - 1 Week Discharge Medications: Continued Kandace 24 Fe 1 mg-20 mcg (24)/75 mg (4) tablet 1 tab PO DAILY Discharge Orders: Discharge Order (Routine); Ordered 06/25/25 Ordered By: Montana Wilhelm Diet: Regular diet Activity on Discharge: As tolerated Stand Alone Forms: Patient Portal Discharge page Print Language: Wallisian Care Plan Goals: Maintain mood and safe behaviors Take medications as prescribed Continue to pursue sobriety Practice coping skills Continue with outpatient providers and reach out to them as needed Health Concerns: Mood stability and behaviors Sobriety Plan of Treatment: Follow up with your outpatient providers regarding above concerns Assessment: Risk assessment at time of discharge:? Patient was interviewed prior to discharge and found to be fully oriented and without any SI or HI. Patient has improved insight and judgment and wants to continue treatment. Patient is not in imminent risk of harm to self or others and has a safety plan that includes presenting to the closest ER or calling 911 if feeling unsafe.? Patient has been observed closely by nursing and unit staff throughout admission; patient has not engaged in any behaviors that suggest dangerousness to self or others and has demonstrated appropriate behaviors and impulse control
[2025-06-24 20:00] VITALS: BP 117/76; PULSE 80; TEMP 37.1; O2SAT 97
[2025-06-25 08:00] VITALS: BP 119/76; PULSE 76; TEMP 36.9; O2SAT 97
== END 2025-06-25 10:58 | disposition home or self-care (01) | DRG 882 ==
LOC: HO.ED 15:29 → HO.PM5 06-22 16:25
PROVIDERS: Nurse Practitioner Psychiatric/Mental Health; Physician Assistant; Admitting Provider Clinical Nurse Specialist Psychiatric/Mental Health, Adult; Emergency Provider Emergency Medicine; Visit Provider Clinical Nurse Specialist Psychiatric/Mental Health, Adult
DX: F43.25 Adjustment disorder with mixed disturbance of emotions and conduct (principal); F10.94 Alcohol use, unspecified with alcohol-induced mood disorder; Z23 Encounter for immunization; K59.00 Constipation, unspecified; T46.5X2A Poisoning by other antihypertensive drugs, intentional self-harm, initial encounter; Z79.3 Long term (current) use of hormonal contraceptives
CPT/HCPCS: 36415; 80053; 80061; 80143; 80179; 80307; 81001; 82607; 82746; 83036; 83735; 84439; 84443; 84702; 85025; 85610; 85730; 87086; 90656; 93005; 99285; J1308; J2405; S9485

== ENCOUNTER → 2025-06-21 11:46 | Outpatient (BNV) | payer OTHER, SELFPAY | PROVIDERS: Emergency Provider Emergency Medicine; Visit Provider Internal Medicine Cardiovascular Disease | DX: T46.5X2A Poisoning by other antihypertensive drugs, intentional self-harm, initial encounter (principal) | CPT/HCPCS: 93010 ==

== ENCOUNTER → 2025-06-22 16:01 | Outpatient (BNV) | payer OTHER, SELFPAY | PROVIDERS: Admitting Provider Clinical Nurse Specialist Psychiatric/Mental Health, Adult; Emergency Provider Emergency Medicine; Visit Provider Nurse Practitioner Family | DX: F10.94 Alcohol use, unspecified with alcohol-induced mood disorder (principal) | CPT/HCPCS: 99221 ==

== ENCOUNTER → 2025-06-22 16:01 | Outpatient (BNV) | payer OTHER, SELFPAY | PROVIDERS: Admitting Provider Clinical Nurse Specialist Psychiatric/Mental Health, Adult; Emergency Provider Emergency Medicine; Visit Provider Nurse Practitioner Psychiatric/Mental Health | DX: F10.94 Alcohol use, unspecified with alcohol-induced mood disorder (principal); T50.901A Poisoning by unspecified drugs, medicaments and biological substances, accidental (unintentional), initial encounter; K59.00 Constipation, unspecified | CPT/HCPCS: 90792; 99232 ==